=== PATIENT | male | born 1960 | race Caucasian/White ===

== ENCOUNTER → 2017-04-23 | Outpatient (CLI) | payer BC ==
[~2017-04-23] MED LIST: ALLO300T2 PO; ARTH650T6 PO; ASPI-146 PO; COMMODE 3-IN-11 MIS; CPMMACHINE; DARV PO; DICL75TA PO; DIFL500T PO; ENOX40IN SQ; HYDR-3583 PO; NORC5TAB PO; OMEP20TA93 PO; WALKER WHEELS/F1 MIS; Z.0.NO CURRENT MEDS
== END ==
LOC: CPRE 09:19
PROVIDERS: ATTEND Orthopaedic Surgery
DX: Z01.818 Encounter for other preprocedural examination (principal)

== ENCOUNTER 2017-05-09 05:39 | Inpatient (IN) | payer BC ==
[~2017-05-09] VITALS: Ht 185.4 cm; Wt 93.6 kg
[~2017-05-09 05:39] MED LIST changes: -ASPI-146 PO; -COMMODE 3-IN-11 MIS; -CPMMACHINE; -DARV PO; -DIFL500T PO; -ENOX40IN SQ; -NORC5TAB PO; -WALKER WHEELS/F1 MIS; -Z.0.NO CURRENT MEDS
--- NOTE | 2017-05-09 06:57 | HHI.DCPOC ---
Discharge Care Plan Diagnosis: (1) Primary localized osteoarthrosis, lower leg (2) Status post total knee replacement, left Your Health Problems Are: Difficulty with ADL Goals to Promote Your Health * To prevent worsening of your condition and complications * To maintain your health at the optimal level Directions to Meet Your Goals Take your medications as prescribed Follow your dietary instruction Follow activity as directed Keep your appointments as scheduled Take your immunizations and boosters as scheduled If your symptoms worsen call your PCP, if no PCP go to Urgent Care Center or Emergency Room Smoking is Dangerous to Your Health. Avoid second hand smoke Call the 24-hour hour crisis hotline for domestic abuse at Terrell Acevedo May 09, 2017 06:57
--- NOTE | 2017-05-09 06:58 | HHI.FF ---
Face to Face Verification Diagnosis: (1) Primary localized osteoarthrosis, lower leg (2) Status post total knee replacement, left Physical Therapy Gait training, Transfer training, bed to chair Knee: Total knee Left LE Weight Bearing: WB as tolerated Left LE Range of Motion: Active ROM Nursing Nursing: Neymar teaching Dressing Changes: Do not change dressing Additional Instructions First dressing change in the office I have seen patient Santi Vogt on 05/09/17. My clinical findings support the need for the requested home health care services because: Limited ability to care for self High risk of falls I certify that my clinical findings support that this patient is homebound because: Post-op weakness Unsteady gait/balance Terrell Acevedo May 09, 2017 06:58
[2017-05-09] MEDS ORDERED: INSULIN HUMAN REGULAR 1,000 UNITS/10 ML VIAL SQ PRN (07:00)
[2017-05-09] MEDS ORDERED: ROPIVACAINE PERI-ARTICULAR INJECTION. P-ARTICULR SCH ×5 (07:00)
[2017-05-09] MEDS ORDERED: ceFAZolin 2 GM PREMIX 50 ML IV SCH (07:00)
[2017-05-09] MEDS ORDERED: DEXAMETHASONE SOD PHOS 20 MG/5 ML VIAL IV PRN (07:00)
[2017-05-09] MEDS ORDERED: POVIDONE IODINE 7.5% SCRUB 118 ML BOTTLE TOPICAL SCH (07:00)
[2017-05-09] MEDS ORDERED: LACTATED RINGER'S 1000 ML IV PRN (07:00)
[2017-05-09] MEDS ORDERED: TRANEXAMIC ACID INJ 940 MG in SODIUM CHLORIDE 0.9% INJ 100 ML IV SCH (07:00)
[2017-05-09] MEDS ORDERED: SODIUM CHLORID 0.9% 500 ML IV PRN (07:00)
[2017-05-09] MEDS ORDERED: CHLORHEXIDINE GLUCONATE 2 % 1 PACK (2 CLOTHS) TOPICAL PRN (07:00)
[2017-05-09] MEDS ORDERED: VANCOMYCIN 1000 MG/NS 250 ML (for <70 kg) IV SCH ×2 (07:00)
[2017-05-09] MEDS ORDERED: POVIDONE IODINE 5% (ANTISEPSIS KIT) 4 APPLICATIONS EACH NARE PRN (07:00)
[2017-05-09] MEDS ORDERED: METOPROLOL TARTRATE 25 MG TAB PO PRN (07:00)
[2017-05-09] MEDS ORDERED: COMMODE 3-IN-11 MIS (07:01)
[2017-05-09] MEDS ORDERED: WALKER WHEELS/F1 MIS (07:01)
[2017-05-09] MEDS ORDERED: GENTAMICIN SULFATE 80 MG/2 ML VIAL ONE (07:07)
[2017-05-09] MEDS ORDERED: BUPIVACAINE LIPOSOME PF 1.3% 20 ML VIAL ONE (08:24)
--- NOTE | 2017-05-09 10:21 | PD.OP ---
cc: Raphael Vernon MD Operative Report Date of Surgery: May 09, 2017 Preoperative Diagnosis: Left knee severe osteoarthritis Postoperative Diagnosis: Same Procedure: Left total knee arthroplasty Anesthesia: Gen. and adductor canal block Surgeon: Raphael Vernon Sailing Officer(s): GEORGIANA Londono The surgical procedure was assisted by my Advanced Registered Nurse Practitioner. My BUILDINGS PAINTER presence was necessary throughout this case for the manipulation and positioning of the surgical extremity. My BUILDINGS PAINTER was assisting me throughout the duration of this procedure. The skill set of an Advance Registered Nurse Practitioner was medically necessary to complete this procedure. During the surgical case, the surgical scrub technologist was working at the back table and the Advance Registered Nurse Practitioner was directly assisting me. Operation and Findings: IMPLANTS: DePuy Attune: Patella: size 35. Femur, posterior stabilized size 8. Tibia, rotating platform size 7. Tibial insert, rotating platform, posterior stabilized size 6 mm thickness. ESTIMATED BLOOD LOSS: 150 cc TOURNIQUET TIME: 39 minutes at 250 mmHg pressure. JUSTIFICATION FOR PROCEDURE: The patient has end-stage osteoarthritis to the knee. There is an attached conservative measures pathway form in the chart that describes the nonoperative measures that were undertaken prior to consideration of surgical management. The patient understood the risks and benefits of surgical management. See my office notes for further details PROCEDURE: The patient was brought back to the operative theatre. Adequate anesthesia was obtained. The patient received intravenous vancomycin and Ancef. The lower extremity was prepped and draped in the usual sterile fashion.The leg was exsanguinated, the tourniquet was raised. A standard anterior incision was performed followed by medial parapatellar arthrotomy was performed. End-stage arthritis was identified. Osteotomy of the patella was performed. We drilled holes for the patella. We trialed the patella component. We placed an intramedullary guide into the distal femur. We ultimately resected 14 mm off of the distal femur in 5 degrees of valgus. The remnants of the ACL and PCL were resected. Osteotomy of the proximal tibia was performed, resecting 5 mm off of the medial side. This was done with 3 degrees of posterior slope using an extramedullary guide. The distal end of the guide was placed in the mid aspect of the ankle. The femur was sized, and four chamfer cuts were completed in 3 of external rotation. We then cut the central box in the distal femur to replace the PCL. We resected the remnants of the menisci and removed osteophytes off of the femur and tibia. We then trialed the knee. We punched the tibia for the keel, and then used standard technique to cement in components. Excess cement was removed. We trialed the knee again and the final polyethylene thickness was chosen to provide extension to 0 degrees, and flexion of 140 degrees to gravity. The ligaments were appropriately balanced. Lateral release was necessary to obtain excellent patellofemoral tracking. The tourniquet was released and adequate hemostasis was obtained. An intra- articular injection of a ropivacaine cocktail was injected. The posterior knee was inspected for excess cement, which was removed. The final polyethylene was put into position after thorough irrigation. We then closed deep fascia with a #2 Stratafix followed by skin with 2-0 Vicryl followed by flash. Postop plan is to weight-bear as tolerated. DVT prophylaxis will be performed with Gifty, URI ralph, early mobilization, and Lovenox followed by aspirin. Raphael Vernon MD May 09, 2017 10:21
[2017-05-09] MEDS ORDERED: NORC5TAB PO (10:23)
[2017-05-09] MEDS ORDERED: ASPI-146 PO (10:23)
[2017-05-09] MEDS ORDERED: ENOX40IN SQ (10:23)
[2017-05-09] MEDS ORDERED: Post-op Orders (for Pharmacy) MISC XX ONE (10:30)
[2017-05-09] MEDS ORDERED: diphenhydrAMINE HCL 50 MG/ML VIAL IV PUSH PRN (10:30)
[2017-05-09] MEDS ORDERED: ZOLPIDEM TARTRATE 5 MG TAB PO PRN (10:30)
[2017-05-09] MEDS ORDERED: BISACODYL 10 MG SUPP RECTAL PRN (10:30)
[2017-05-09] MEDS ORDERED: ALUMINUM/MAGNESIUM/SIMETH 30 ML CUP PO PRN (10:30)
[2017-05-09] MEDS ORDERED: MORPHINE SULFATE 4 MG/ML INJ IV PUSH PRN (10:30)
[2017-05-09] MEDS ORDERED: MAGNESIUM HYDROXIDE SUSP 30 ML CUP PO PRN (10:30)
[2017-05-09] MEDS ORDERED: NALOXONE HCL 0.4 MG/ML AMP IV PUSH PRN (10:30)
[2017-05-09] MEDS ORDERED: ONDANSETRON HCL 4 MG/2 ML VIAL IVP PRN (10:30)
[2017-05-09] MEDS ORDERED: DO NOT ADM ANY ANTICOAGULANT DRUGS PRN (10:45)
[2017-05-09] MEDS ORDERED: *MEPERIDINE 25 MG INJ VIAL PERIprocedural Use ONLY ONE (10:46)
[2017-05-09] MEDS ORDERED: *morphine SULFATE 8 MG/ML PERIprocedure ONLY ONE ×3 (11:13→13:23)
--- NOTE | 2017-05-09 11:22 | RADRPT ---
EXAM DATE/TIME: 05/09/2017 10:53 [facility] COMPARISON: No previous studies available for comparison. INDICATIONS : Post op left knee surgery. MEDICAL HISTORY : None. SURGICAL HISTORY : None. ENCOUNTER: Initial ACUITY: 1 day PAIN SCORE: 10/10 LOCATION: Left knee FINDINGS: AP and lateral views of the knee following arthroplasty reveals a prosthesis in anatomic alignment. F racture is not appreciated. Surgical drain is evident CONCLUSION: Status post total knee arthroplasty. Enrique Mcgrath MD FACR Board Certified Radiologist. This report was verified electronically.
[2017-05-09] MEDS: SODIUM CHLOR 0.9% 1000 ML INJ 1,000 ML IV SCH ×3 (11:30→20:23)
[2017-05-09] MEDS ORDERED: SODIUM CHLORIDE 0.9% IV SCH (11:40)
[2017-05-09] MEDS ORDERED: TRANEXAMIC ACID IV SCH (11:40)
--- NOTE | 2017-05-09 13:33 | PD.CONS ---
[facility] By Dr. Raphael Vernon Reason for Consult Medical Management. Primary Care Physician Duncan Lancaster MD Diagnoses: History of Present Illness This is a pleasant 56 y/o male who was brought in by his Primary Orthopedic Surgeon Doctor Raphael Vernon with Diagnosis of Severe Left Knee Osteoarthritis, status post Left total knee arthroplasty, as we know the patient has OA, Gout, Asthma, Dupuytren's Disease of the finger with contracture. patient stable seen in PACU complaint of knee pain status post surgery Review of Systems Constitutional: DENIES: Fever, Chills, Change in appetite Endocrine: DENIES: Heat/cold intolerance Eyes: DENIES: Blurred vision, Eye pain Musculoskeletal: COMPLAINS OF: Joint pain Except as stated in HPI: all other systems reviewed are Neg Past Family Social History Allergies: Coded Allergies: No Known Allergies (Verified Allergy, Severe, 05/09/17) Past Medical History Gout Osteoarthritis Dupuytren's Disease of the finger Asthma RBBB/Hyperlipidemia/Mitral valve regurgitation, Preserved Left ventricular function Past Surgical History Appendectomy Left Knee arthroscopy 03/20/17 Reported Medications Reported Meds & Active Scripts Active Enoxaparin Inj (Enoxaparin Sodium) 40 Mg/0.4 Ml Syr 40 Mg SQ DAILY Start Aspirin after Lovenox is completed. Ecotrin Regular Strength (Aspirin) 325 Mg Tabdr 325 Mg PO DAILY Start Aspirin after Lovenox is completed. [place] (Hydrocodone-Acetaminophen) 5 Mg-325 Mg Tab 1-2 Tab PO Q4H PRN Reported Arthritis Pain Reliever ER 8 HR (Acetaminophen) 650 Mg Tab 650 Mg PO Q8HR PRN Hydrocodone-Acetaminophen 10-325 mg Tab 1 Tab PO Q4H PRN Omeprazole 20 Mg Tab 20 Mg PO DAILY Allopurinol 300 Mg Tab 300 Mg PO DAILY Diclofenac Sodium DR (Diclofenac Sodium) 75 Mg Tabdr 75 Mg PO DAILY Active Ordered Medications Current Medications Medications (Trade) Dose Ordered Sig/Quirino Route Start Time Stop Time Status Last Admin Lactated Ringer's 1,000 ml @ 30 mls/hr Q24H PRN IV 05/09/17 07:00 05/12/17 06:59 05/09/17 07:00 Sodium Chloride 500 ml @ 30 mls/hr [id number] PRN IV 05/09/17 07:00 05/12/17 06:59 (Lopressor) 25 mg PRODUCTION CELL LEADER PRN PO 05/09/17 07:00 05/12/17 06:59 (Betadine 5% Antisepsis Kit) 1 applic PRODUCTION CELL LEADER PRN EACH NARE 05/09/17 07:00 05/12/17 06:59 05/09/17 07:05 (Chlorhexidine 2% Cloth) 3 pack PRODUCTION CELL LEADER PRN TOPICAL 05/09/17 07:00 05/12/17 06:59 05/09/17 06:30 (NovoLIN R INJ) See Protocol Table ... PRODUCTION CELL LEADER PRN SQ 05/09/17 07:00 05/12/17 06:59 (Decadron Inj) 10 mg PRODUCTION CELL LEADER PRN IV 05/09/17 07:00 05/09/17 23:00 05/09/17 07:17 (Betadine 7.5% Scrub) 1 applic ONCE TOPICAL 05/09/17 07:00 05/12/17 06:59 Cefazolin Sodium/ Dextrose 50 ml @ 100 mls/hr PRODUCTION CELL LEADER IV 05/09/17 07:00 05/12/17 06:59 05/09/17 07:19 Vancomycin HCl 1000 mg/Sodium Chloride 250 ml @ 250 mls/hr PRODUCTION CELL LEADER IV 05/09/17 07:00 05/12/17 06:59 05/09/17 07:21 Tranexamic Acid 940 mg/Sodium Chloride 109.4 ml @ 200 mls/hr ONCE IV 05/09/17 07:00 05/09/17 17:00 05/09/17 08:40 Ropivacaine 24.63 ml/Ketorolac Tromethamine 30 mg/Epinephrine HCl 0.5 mg/ Clonidine 80 mcg/ Sodium Chloride 100 ml @ 200 mls/hr ONCE P-ARTICULR 05/09/17 07:00 05/09/17 17:00 05/09/17 09:14 (Zyloprim) 300 mg DAILY PO 05/10/17 09:00 (Protonix) 20 mg DAILY PO 05/10/17 09:00 Sodium Chloride 1,000 ml @ 100 mls/hr Q10H IV 05/09/17 10:16 05/09/17 11:30 Cefazolin Sodium 1000 mg/Sodium Chloride 100 ml @ 200 mls/hr Q6H IV 05/09/17 13:00 05/10/17 01:29 (Decadron Inj) 10 mg ONCE ONCE IV 05/10/17 07:45 05/10/17 07:46 (Lovenox Inj) 40 mg Q24H SQ 05/10/17 09:30 05/19/17 09:31 ([place] 5-325 Mg) 1 tab Q4H PRN PO 05/09/17 10:30 ([place] 5-325 Mg) 2 tab Q4H PRN PO 05/09/17 10:30 Tranexamic Acid 936 mg/Sodium Chloride 109.36 ml @ 200 mls/ hr UNSCH IV 05/09/17 11:40 05/09/17 17:40 05/09/17 11:50 (Theragran M Tab) 1 tab BID PO 05/10/17 21:00 07/09/17 20:59 (Zofran Inj) 4 mg Q6H PRN IVP 05/09/17 10:30 (Colace) 100 mg BID PO 05/10/17 21:00 (Mag-Al Plus Susp Liq) 30 ml Q6H PRN PO 05/09/17 10:30 (Ambien) 5 mg HS PRN PO 05/09/17 10:30 (Dulcolax Supp) 10 mg DAILY PRN RECTAL 05/09/17 10:30 (Milk Of Magnesia Liq) 30 ml DAILY PRN PO 05/09/17 10:30 (Narcan Inj) 0.4 mg UNSCH PRN IV PUSH 05/09/17 10:30 (Benadryl Inj) 25 mg Q6H PRN IV PUSH 05/09/17 10:30 (Morphine Inj) 2 mg Q3H PRN IV PUSH 05/09/17 10:30 Miscellaneous Information ALL NURSING DEPARTME... 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 SKIN: No rashes, ecchymoses or lesions. Cool and dry. HEAD: Atraumatic. Normocephalic. No temporal or scalp tenderness. EYES: Pupils equal round and reactive. Extraocular motions intact. No scleral icterus. No injection or drainage. ENT: Nose without bleeding, purulent drainage or septal hematoma. Throat without erythema, tonsillar hypertrophy or exudate. Uvula midline. Airway patent. NECK: Trachea midline. No JVD or lymphadenopathy. Supple, nontender, no meningeal signs. CARDIOVASCULAR: Regular rate and rhythm without murmurs, gallops, or rubs. RESPIRATORY: Clear to auscultation. Breath sounds equal bilaterally. No wheezes , rales, or rhonchi. GASTROINTESTINAL: Abdomen soft, non-tender, nondistended. No hepato-splenomegaly , or palpable masses. No guarding. MUSCULOSKELETAL: Orthotics on left leg. NEUROLOGICAL: Awake and alert. Cranial nerves II through XII intact. Motor and sensory grossly within normal limits. Five out of 5 muscle strength in all muscle groups. Normal speech. Imaging Last Impressions Knee X-Ray 05/09/17 1016 Signed Impressions: Service Date/Time: Tuesday, May 09, 2017 10:53 - CONCLUSION: Status post total knee arthroplasty. Enrique Mcgrath MD Assessment and Plan Assessment and Plan 1. 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 Asthma stable 3. Gout to continue home medicine, Follow laboratory Code Status Full Code. Discussed Condition With Patient. Yemi Dubose MD May 09, 2017 13:33
[2017-05-09] MEDS ORDERED: CPMMACHINE (14:22)
[2017-05-09 15:25] VITALS: BP 124/86; PULSE 111; RESP 18; TEMP 97.6; O2SAT 96
[2017-05-09] MEDS: ACETAMINOPHEN/HYDROcodone 325 MG/5 MG TAB PO PRN ×2 (15:55→20:05)
[2017-05-09 20:00] VITALS: BP 110/62; PULSE 108; RESP 18; TEMP 96.6; O2SAT 96
[2017-05-10] VITALS: BP 109/65; PULSE 99; RESP 16; TEMP 97.9; O2SAT 97
[2017-05-10] MEDS: ACETAMINOPHEN/HYDROcodone 325 MG/5 MG TAB PO PRN ×5 (00:24→14:30)
[2017-05-10 04:00] VITALS: BP 101/61; PULSE 75; RESP 18; TEMP 97.3; O2SAT 97
[2017-05-10 06:56] LABS: HEMATOCRIT 35.7 % (39.0-51.0); MEAN CELL VOLUME 97.1 FL (80.0-100.0); MEAN CORPUSCULAR HEMOGLOBIN 33.5 PG (27.0-34.0); MEAN CORPUSCULAR HGB CONC 34.5 % (32.0-36.0); PLATELET COUNT 148 TH/MM3 (150-450); RED BLOOD COUNT 3.68 MIL/MM3 (4.50-5.90); RED CELL DISTRIBUTION WIDTH 13.4 % (11.6-17.2); REVIEW FLAG FINAL; WHITE BLOOD COUNT 11.6 TH/MM3 (4.0-11.0)
[2017-05-10] MEDS ORDERED: DEXAMETHASONE SOD PHOS 20 MG/5 ML VIAL IV ONE (07:45)
[2017-05-10 08:00] VITALS: BP 98/64; PULSE 90; RESP 18; TEMP 97; O2SAT 98
[2017-05-10] MEDS ORDERED: ALLOPURINOL 300 MG TAB PO SCH (09:00)
[2017-05-10] MEDS ORDERED: PANTOPRAZOLE SOD 20 MG DELAYED RELEASE TAB PO SCH (09:00)
--- NOTE | 2017-05-10 09:09 | HHI.PR ---
Subjective Remarks This is a pleasant 56 y/o male who was brought in by his Primary Orthopedic Surgeon Doctor Raphael Vernon with Diagnosis of Severe Left Knee Osteoarthritis, status post Left total knee arthroplasty, as we know the patient has OA, Gout, Asthma, Dupuytren's Disease of the finger with contracture. patient stable seen in PACU complaint of knee pain status post surgery 05/10: Seen in his bedroom in the presence of Physical Therapy, patient then seen in the aisle stable, okay to discharge home with C as per Physical Therapy awaiting final by Orthopedic Surgery. no nausea , vomit or diarrhea. Objective Vital Signs Date Time Temp Pulse Resp B/P (MAP) Pulse Ox O2 Delivery O2 Flow Rate FiO2 05/10/17 08:00 97.0 90 18 98/64 (75) 98 05/10/17 04:00 97.3 75 18 101/61 (74) 97 05/10/17 00:00 97.9 99 16 109/65 (80) 97 05/09/17 20:00 96.6 108 18 110/62 (78) 96 05/09/17 15:25 97.6 111 18 124/86 (99) 96 05/09/17 15:00 105 12 104/60 (75) 93 Nasal Cannula 2 05/09/17 14:00 101 12 123/78 (93) 96 Nasal Cannula 2 05/09/17 13:00 99 12 115/68 (84) 94 Nasal Cannula 2 05/09/17 12:00 97.9 93 12 116/69 (85) 94 Nasal Cannula 2 05/09/17 11:45 89 12 117/56 (76) 93 Nasal Cannula 3 05/09/17 11:30 91 11 120/71 (87) 97 Nasal Cannula 3 05/09/17 11:15 90 15 123/74 (90) 95 Nasal Cannula 3 05/09/17 11:00 86 14 125/70 (88) 92 Nasal Cannula 3 05/09/17 10:45 97.5 91 14 137/81 (99) 92 Nasal Cannula 3 I/O 05/09/17 05/09/17 05/09/17 05/10/17 05/10/17 05/10/17 07:00 15:00 23:00 07:00 15:00 23:00 Intake Total 1220 ml 480 ml 340 ml Output Total 150 ml Balance 1070 ml 480 ml 340 ml Intake Oral 480 ml 240 ml IV Total 420 ml 100 ml Other 800 ml Output Estimated Blood Loss 150 ml # Voids 2 2 # Bowel Movements 0 0 Result Diagram: 05/10/17 0541 Imaging Last Impressions Knee X-Ray 05/09/17 1016 Signed Impressions: Service Date/Time: Tuesday, May 09, 2017 10:53 - CONCLUSION: Status post total knee arthroplasty. Enrique Mcgrath MD Procedures Left total Knee arthroplasty Other Results Laboratory Tests Test 05/10/17 05:41 White Blood Count 11.6 TH/MM3 Red Blood Count 3.68 MIL/MM3 Hemoglobin 12.3 GM/DL Hematocrit 35.7 % Mean Corpuscular Volume 97.1 FL Mean Corpuscular Hemoglobin 33.5 PG Mean Corpuscular Hemoglobin Concent 34.5 % Red Cell Distribution Width 13.4 % Platelet Count 148 TH/MM3 Mean Platelet Volume 9.4 FL Objective Remarks GENERAL: Well developed in no acute distress. SKIN: No rashes, ecchymoses or lesions. Cool and dry. HEAD: Atraumatic. Normocephalic. EYES: Pupils equal round and reactive. ENT: Nose without bleeding, purulent drainage or septal hematoma. NECK: Trachea midline. No JVD or lymphadenopathy. Supple, nontender, no meningeal signs. CARDIOVASCULAR: Regular rate and rhythm without murmurs, gallops, or rubs. RESPIRATORY: Clear to auscultation. Breath sounds equal bilaterally. No wheezes , rales, or rhonchi. GASTROINTESTINAL: Abdomen soft, non-tender, nondistended. No hepato-splenomegaly , or palpable masses. No guarding. MUSCULOSKELETAL: Left knee with clean surgical wound. NEUROLOGICAL: Awake and alert. Cranial nerves II through XII intact. Medications and IVs Current Medications Medications (Trade) Dose Ordered Sig/Quirino Route Start Time Stop Time Status Last Admin (Zyloprim) 300 mg DAILY PO 05/10/17 09:00 05/10/17 08:12 (Protonix) 20 mg DAILY PO 05/10/17 09:00 05/10/17 08:12 Sodium Chloride 1,000 ml @ 100 mls/hr Q10H IV 05/09/17 10:16 05/09/17 11:30 (Lovenox Inj) 40 mg Q24H SQ 05/10/17 09:30 1217 09:31 05/10/17 08:14 ([place] 5-325 Mg) 1 tab Q4H PRN PO 05/09/17 10:30 ([place] 5-325 Mg) 2 tab Q4H PRN PO 05/09/17 10:30 05/10/17 00:24 (Theragran M Tab) 1 tab BID PO 05/10/17 21:00 07/09/17 20:59 (Zofran Inj) 4 mg Q6H PRN IVP 05/09/17 10:30 (Colace) 100 mg BID PO 05/10/17 21:00 (Mag-Al Plus Susp Liq) 30 ml Q6H PRN PO 05/09/17 10:30 (Ambien) 5 mg HS PRN PO 05/09/17 10:30 (Dulcolax Supp) 10 mg DAILY PRN RECTAL 05/09/17 10:30 (Milk Of Magnesia Liq) 30 ml DAILY PRN PO 05/09/17 10:30 05/10/17 08:12 (Narcan Inj) 0.4 mg UNSCH PRN IV PUSH 05/09/17 10:30 (Benadryl Inj) 25 mg Q6H PRN IV PUSH 05/09/17 10:30 (Morphine Inj) 2 mg Q3H PRN IV PUSH 05/09/17 10:30 Miscellaneous Information ALL NURSING DEPARTME... UNSCH PRN .XX 05/09/17 10:45 05/10/17 10:44 A/P Assessment and Plan 1. 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 Asthma stable 3. Gout to continue home medicine, Follow laboratory Code Status Full Code. Discussed Condition With Patient, Nurse Miss Joy and with breakfast manager Discharge Planning as per attending physician Yemi Dubose MD May 10, 2017 9:09 am
[2017-05-10] MEDS ORDERED: ENOXAPARIN SODIUM 40 MG/0.4 ML SYRINGE SQ SCH (09:30)
[2017-05-10 12:00] VITALS: BP 103/66; PULSE 82; RESP 18; TEMP 98.1; O2SAT 97
--- NOTE | 2017-05-10 12:59 | PD.ORT.PN ---
Subjective Post Op Day #: 1 Subjective Remarks Patient is OOB in chair with mild pain and swelling to the left knee. Patient states he is ready to be discharged home with home health. Objective Vitals Vital Signs Date Time Temp Pulse Resp B/P (MAP) Pulse Ox O2 Delivery O2 Flow Rate FiO2 05/10/17 08:00 97.0 90 18 98/64 (75) 98 05/10/17 04:00 97.3 75 18 101/61 (74) 97 05/10/17 00:00 97.9 99 16 109/65 (80) 97 05/09/17 20:00 96.6 108 18 110/62 (78) 96 05/09/17 15:25 97.6 111 18 124/86 (99) 96 05/09/17 15:00 105 12 104/60 (75) 93 Nasal Cannula 2 05/09/17 14:00 101 12 123/78 (93) 96 Nasal Cannula 2 05/09/17 13:00 99 12 115/68 (84) 94 Nasal Cannula 2 I/O 05/09/17 05/09/17 05/09/17 05/10/17 05/10/17 05/10/17 07:00 15:00 23:00 07:00 15:00 23:00 Intake Total 1220 ml 480 ml 340 ml Output Total 150 ml Balance 1070 ml 480 ml 340 ml Intake Oral 480 ml 240 ml IV Total 420 ml 100 ml Other 800 ml Output Estimated Blood Loss 150 ml # Voids 2 2 # Bowel Movements 0 0 Result Diagram: 05/10/17 0541 Procedures Left TKA Objective Remarks The patient's dressing is C/D/I. EHL/TA/G intact. 2+ pedal pulse. Calf is soft and nontender. + SILT. Assessment & Plan Ortho Post Op Day #: 1 Problem List: Assessment and Plan POD #1: Left TKA 1. WBAT LLE 2. Lovenox followed by ASA for DVT prophylaxis 3. Ice to the left knee PRN 4. Stable per ortho for discharge home with home health today. 5. Patient will f/u with Dr. Vernon or GEORGIAAN Coello as previously scheduled. Terrell Acevedo May 10, 2017 12:59
[2017-05-10] MEDS ORDERED: DOCUSATE SODIUM 100 MG CAP PO SCH (21:00)
[2017-05-10] MEDS ORDERED: MULTIVITAMINS/MINERALS THERAPEUTIC TAB PO SCH (21:00)
--- NOTE | 2017-05-11 16:53 | HHI.DS ---
Discharge Summary Admission Date May 09, 2017 at 05:39 Discharge Date: May 10, 2017 Admitting Diagnosis Primary localized OA, lower leg Status post total knee replacement, left Diagnosis: (1) Primary localized osteoarthrosis, lower leg Diagnosis: Principal ICD Codes: M17.10 - Unilateral primary osteoarthritis, unspecified knee (2) Status post total knee replacement, left Diagnosis: Principal ICD Codes: Z96.652 - Presence of left artificial knee joint Procedures Left TKA Brief History This is a 56 year old male patient with severe OA of the left knee. CBC/BMP: 05/10/17 0541 Significant Findings Laboratory Tests Test 05/10/17 05:41 White Blood Count 11.6 TH/MM3 (4.0-11.0) Red Blood Count 3.68 MIL/MM3 (4.50-5.90) Hemoglobin 12.3 GM/DL (13.0-17.0) Hematocrit 35.7 % (39.0-51.0) Platelet Count 148 TH/MM3 (150-450) PE at Discharge The patient's dressing is C/D/I. EHL/TA/G intact. 2+ pedal pulse. Calf is soft and nontender. + SILT. Hospital Course The patient was admitted to the hospital for severe OA of the left knee. The patient had a left TKA. The patient's surgery went well without complication. The patient is WBAT. The patient is on a regular diet. The patient was placed on Lovenox followed by ASA for DVT prophylaxis. The patient was discharged home with home health and will f/u in the office with Dr. Vernon or GEORGIANA Coello as previously scheduled. Pt Condition on Discharge: Stable Discharge Disposition: Disch w/ Home Health Serv Discharge Instructions Diet Instructions: As Tolerated, No Restrictions Activities You Can Perform: Weight Bearing as [place] Activities to Avoid: Strenuous Activity Follow up Referrals: Orthopedics with Raphael Vernon MD New Medications: Aspirin (Ecotrin Regular Strength) 325 Mg Tabdr 325 MG PO DAILY for Prevent Blood Clot, #30 TAB 0 Refills Start Aspirin after Lovenox is completed. Commode 3-in-1 (Commode 3-in-1) 1 Mis Mis EA .ROUTE DIRECTED, #1 0 Refills CPM-Continuous Passive Motion Machine (CPM-Continuous Passive Motion Machine) 1 Ea Device EA .ROUTE DIRECTED, #1 0 Refills Enoxaparin Inj (Enoxaparin Inj) 40 Mg/0.4 Ml Syr 40 MG SQ DAILY for Blood Clot Prevention, #10 SYRINGE 0 Refills Start Aspirin after Lovenox is completed. Hydrocodone-Acetaminophen ([place]) 5 Mg-325 Mg Tab 1-2 TAB PO Q4H PRN for PAIN, #60 TAB 0 Refills Walker with Front Wheels (Walker with Front Wheels) 1 Mis Mis EA .ROUTE DIRECTED, #1 0 Refills Continued Medications: Allopurinol (Allopurinol) 300 Mg Tab 300 MG PO DAILY for Gout, #30 TAB 0 Refills Omeprazole (Omeprazole) 20 Mg Tab 20 MG PO DAILY, #30 TAB 0 Refills Discontinued Medications: Acetaminophen ER 8 HR (Arthritis Pain Reliever ER 8 HR) 650 Mg Tab 650 MG PO Q8HR PRN for PAIN, TAB [address] (Diclofenac Sodium DR) 75 Mg Tabdr 75 MG PO DAILY, #30 TAB 0 Refills Hydrocodone-Acetaminophen (Hydrocodone-Acetaminophen) 10-325 mg Tab 1 TAB PO Q4H PRN for PAIN, TAB 0 Refills Terrell Acevedo May 11, 2017 16:53
== END 2017-05-10 16:26 | disposition home health service (06) | DRG 470 ==
LOC: HSDI 05:39 → N06B 15:31
PROVIDERS: ADMIT Orthopaedic Surgery; ATTEND Orthopaedic Surgery
PROC: 3E0T3BZ Introduction of Anesthetic Agent into Peripheral Nerves and Plexi, Percutaneous Approach (ICD-10-PCS; 2017-05-09)
PROC: 0SRD0J9 Replacement of Left Knee Joint with Synthetic Substitute, Cemented, Open Approach (ICD-10-PCS; principal; 2017-05-09 08:21)
DX: M17.12 Unilateral primary osteoarthritis, left knee (principal); E78.5 Hyperlipidemia, unspecified; M10.9 Gout, unspecified; M25.762 Osteophyte, left knee; J45.909 Unspecified asthma, uncomplicated; M72.0 Palmar fascial fibromatosis [Dupuytren]; I34.0 Nonrheumatic mitral (valve) insufficiency; I45.10 Unspecified right bundle-branch block; Z87.891 Personal history of nicotine dependence
CPT/HCPCS: 73560; 85027; 86850; 86900; 86901; 94150; C1776; C9290; J0690; J0735; J1100; J1580; J1650; J1885; J2175; J2270; J2795; J3370; J7030; J7050; J7120; L1830